=== PATIENT | female | born 1985 | race Caucasian/White ===

== ENCOUNTER 2017-07-02 21:51 | Emergency (ER) | payer MEDICAID ==
[~2017-07-02] VITALS: Ht 157.5 cm; Wt 61.5 kg
[2017-07-02 22:45] VITALS: BP 124/68
[2017-07-02] MEDS ORDERED: KETOROLAC TROMETHAMINE 60 MG/2 ML VIAL IM ONE (22:45)
== END 2017-07-02 23:10 | disposition home or self-care (01) ==
LOC: EMS 21:54
DX: S63.502A Unspecified sprain of left wrist, initial encounter (principal); S43.402A Unspecified sprain of left shoulder joint, initial encounter; Z88.5 Allergy status to narcotic agent; Z88.6 Allergy status to analgesic agent; W01.0XXA Fall on same level from slipping, tripping and stumbling without subsequent striking against object, initial encounter; Y93.89 Activity, other specified; Y92.89 Other specified places as the place of occurrence of the external cause; Y99.8 Other external cause status
CPT/HCPCS: 29105; 29125; 73110; 96372; 99284; J1885

== ENCOUNTER 2017-10-13 20:38 | Emergency (ER) | payer MEDICAID ==
[~2017-10-13] VITALS: Ht 157.5 cm; Wt 63.6 kg
[2017-10-13 20:50] VITALS: BP 114/81
== END 2017-10-13 23:19 | disposition left against medical advice (07) ==
LOC: EMS 20:45
DX: R51 Headache (principal); R11.2 Nausea with vomiting, unspecified; Z53.21 Procedure and treatment not carried out due to patient leaving prior to being seen by health care provider

== ENCOUNTER 2021-12-04 09:30 | Emergency (ER) | payer MEDICAID, OTHER ==
[~2021-12-04] VITALS: Ht 157.5 cm; Wt 63.6 kg
[2021-12-04 10:32] LABS: BASOPHILS % (AUTO) 0.4 % (0.0-2.0); EOSINOPHILS % (AUTO) 1.6 % (1.0-6.0); HEMATOCRIT 26.8 % (36-46); LYMPHOCYTES # (AUTO) 3.2 K/uL (1.0-4.8); LYMPHOCYTES % (AUTO) 36.2 % (22.0-44.0); MEAN CORPUSCULAR HEMOGLOBIN 16.8 pg (26.0-34.0); MEAN CORPUSCULAR HGB CONC 29.8 G/dL (31.0-37.0); MEAN CORPUSCULAR VOLUME 57 fL (80-100); MONOCYTES # (AUTO) 0.5 K/uL (0.1-1.0); MONOCYTES % (AUTO) 6.3 % (2.0-9.0); NEUTROPHILS # (AUTO) 4.9 K/uL (1.8-7.7); NEUTROPHILS % (AUTO) 55.5 % (40.0-70.0); PLATELET COUNT (AUTO) 512 K/uL (150-450); RED BLOOD CELL COUNT(AUTO) 4.73 MIL/uL (4.00-5.20); RED CELL DISTRIBUTION WIDTH 20.1 % (11.5-14.5)
[2021-12-04 10:41] LABS: ANION GAP 9 mmol/L (8-16); CALCIUM, TOTAL 8.9 mg/dL (8.8-10.5); CARBON DIOXIDE 26 mmol/L (22-29); CHLORIDE 103 mmol/L (98-107); CREATININE 0.54 mg/dL (0.60-1.30); GLOMERULAR FILTR. RATE CALC > 60 mL/min (>60); GLUCOSE,RANDOM 88 mg/dL (70-110); POTASSIUM 3.8 mmol/L (3.5-5.1); SODIUM SERUM 138 mmol/L (136-145); UREA NITROGEN, BLOOD 10 mg/dL (7-18)
[2021-12-04 10:43] LABS: PROTHROMBIN TIME 10.4 SEC (9.4-11.6)
[2021-12-04 10:57] LABS: ALANINE AMINOTRANSFERASE 20 U/L (12-78); ALBUMIN 3.9 g/dL (3.4-5.0); ALKALINE PHOSPHATASE 73 U/L (46-116); ASPARTATE AMINOTRANSFERASE 18 U/L (15-37); BILIRUBIN,TOTAL 0.2 mg/dL (0.1-1.0); HCG,QUANTITATIVE < 1 mIU/mL (0-6); TOTAL PROTEIN, SERUM 8.2 g/dL (6.4-8.2)
[2021-12-04 11:55] VITALS: BP 105/59
== END 2021-12-04 12:33 | disposition home or self-care (01) ==
LOC: EMS 09:33
DX: D64.9 Anemia, unspecified (principal); R52 Pain, unspecified; Z88.6 Allergy status to analgesic agent; Z88.5 Allergy status to narcotic agent
CPT/HCPCS: 71045; 80053; 84702; 85025; 85610; 99284; 36415-L1; 36415-TC

== ENCOUNTER 2024-08-23 10:28 | Emergency (ER) | payer OTHER ==
[~2024-08-23] VITALS: Ht 157.5 cm; Wt 70.9 kg
[2024-08-23 10:29] VITALS: O2SAT 99
[2024-08-23 11:30] LABS: BASOPHILS % (AUTO) 0.1 % (0.0-2.0); EOSINOPHILS % (AUTO) 0 % (1.0-6.0); HEMATOCRIT 26.1 % (36-46); HEMOGLOBIN 7.5 g/dL (12.0-16.0); LYMPHOCYTES # (AUTO) 1.7 K/uL (1.0-4.8); LYMPHOCYTES % (AUTO) 11.8 % (22.0-44.0); MEAN CORPUSCULAR HEMOGLOBIN 16.8 pg (26.0-34.0); MEAN CORPUSCULAR HGB CONC 28.9 G/dL (31.0-37.0); MEAN CORPUSCULAR VOLUME 58 fL (80-100); MONOCYTES # (AUTO) 1.1 K/uL (0.1-1.0); MONOCYTES % (AUTO) 7.3 % (2.0-9.0); NEUTROPHILS # (AUTO) 11.7 K/uL (1.8-7.7); NEUTROPHILS % (AUTO) 80.8 % (40.0-70.0); PLATELET COUNT (AUTO) 474 K/uL (150-450); RED BLOOD CELL COUNT(AUTO) 4.49 MIL/uL (4.00-5.20); RED CELL DISTRIBUTION WIDTH 21.4 % (11.5-14.5); WHITE BLOOD COUNT (AUTO) 14.5 K/uL (4.5-11.0)
[2024-08-23] MEDS ORDERED: IOHEXOL 350 MG/ML 100 ML VIAL ONE (11:35)
[2024-08-23] MEDS ORDERED: SODIUM CHLORIDE 0.9% 100 ML ONE (11:35)
[2024-08-23] MEDS: MORPHINE SULFATE 2 MG/ML SYRINGE IVP ONE (11:36)
[2024-08-23] MEDS: SODIUM CHLORIDE 0.9% 1,000 ML IV ONE (11:37)
[2024-08-23 11:52] LABS: RBC MORPHOLOGY COMMENT ABNORMAL RBC MORPH
[2024-08-23 11:57] LABS: ANION GAP 9 mmol/L (8-16); CARBON DIOXIDE 25 mmol/L (22-29); CHLORIDE 101 mmol/L (98-107); CREATININE 0.64 mg/dL (0.60-1.30); GLOMERULAR FILTR. RATE CALC > 60 mL/min (>60); GLUCOSE,RANDOM 107 mg/dL (70-110); SODIUM SERUM 135 mmol/L (136-145); UREA NITROGEN, BLOOD 8 mg/dL (7-18)
[2024-08-23 12:06] LABS: HCG,QUANTITATIVE < 1 mIU/mL (0-6); LIPASE 28 U/L (16-77)
[2024-08-23 12:47] LABS: APPEARANCE,URINE HAZY (CLEAR); BILIRUBIN,URINE NEGATIVE (NEGATIVE); GLUCOSE, URINE (UA) NEGATIVE (NEGATIVE); KETONES,URINE NEGATIVE (NEGATIVE); LEUKOCYTE ESTERASE ,URINE MODERATE (NEGATIVE); NITRATE,URINE NEGATIVE (NEGATIVE); OCCULT BLOOD,URINE LARGE (NEGATIVE); PH,URINE 7.5 (5.0-8.0); PROTEIN,URINE 30-70 mg/dL (NEGATIVE); SPECIFIC GRAVITIY, URINE 1.017 (1.003-1.030); UROBILINOGEN,URINE <=1.0 mg/dL (<=1.0)
[2024-08-23 12:50] LABS: COLOR,URINE RED (YELLOW)
[2024-08-23] MEDS: CefTRIAXone 1 GM/DEXTROSE 50 ML IV ONE (12:51)
[2024-08-23 12:57] LABS: BACTERIA,URINE None Seen /HPF (None Seen); RBC,URINE Full Field /HPF (0-2); SQUAMOUS EPITHELIAL CELL,UR Rare /LPF (None Seen); WBC,URINE 0-2 /HPF (0-5)
[2024-08-23] MEDS: PIPERACILLIN/TAZO 3.375 GM/D5W 50 ML IV ONE (13:44)
[2024-08-23 13:56] VITALS: TEMP 98.6
[2024-08-23 14:48] VITALS: BP 118/53; PULSE 78; RESP 16
== END 2024-08-23 17:38 | disposition admitted as inpatient to this hospital (09) ==
LOC: EMS 10:30
DX: K35.80 Unspecified acute appendicitis (principal); D64.9 Anemia, unspecified; Z88.5 Allergy status to narcotic agent
CPT/HCPCS: 99285; 74177; 96365; 96361; 96366; 96375; 80048; 81001; 83690; 84702; 85025; 87040; 36415; 96368; Q9967; J0696; J2270; J2543; J7030; J7050